=== PATIENT | male | born 1980 | race African-American/Black ===

== ENCOUNTER 2021-05-03 13:29 | Emergency (ER) | payer OTHER, SELFPAY ==
[2021-05-03 13:50] VITALS: BP 119/85; PULSE 100; RESP 20; TEMP 37.5; O2SAT 98
--- NOTE | 2021-05-03 14:38 | ED.FEVER ---
HPI - Fever General Chief Complaint: Fever Stated Complaint: fever Source: patient Mode of arrival: ambulatory Limitations: no limitations History of Present Illness HPI Narrative: Patient is a 41-year-old male who presents with generalized complaints for the past 3 to 4 days. He reports fever, chills and body aches. Patient also reports fatigue, however, he reports he is unable to sleep and feeling anxious. Patient reports that he is not taking his temperature at home. He reports a history of Covid in 2020 and recently vaccinated for Covid. He denies significant medical history. He denies cough, chest pain or shortness of breath. MD elicited complaint: fever Related Data Home Medications Medication Instructions Recorded Confirmed No Home Medications 05/03/21 05/03/21 Allergies Allergy/AdvReac Type Severity Reaction Status Date / Time No Known Allergies Allergy Verified 05/03/21 14:02 Review of Systems Review of Systems: CONSTITUTIONAL: Reports fever, chills, and body aches EYES: Denies visual changes, redness, or discharge. ENT: Denies rhinorrhea, congestion, sore throat, or otalgia. CARDIOVASCULAR: Denies chest pain, palpitations, or edema. RESPIRATORY: Denies cough or dyspnea. GASTROINTESTINAL: Denies abdominal pain, nausea, vomiting, or diarrhea. GENITOURINARY: Denies dysuria or hematuria. SKIN: Denies rash or itching. MUSCULOSKELETAL: Denies back pain, joint pain, or myalgia. NEUROLOGIC: Denies headache, numbness, dizziness, or weakness. PSYCHIATRIC: Denies anxiety or depression. [facility] Past Medical History Medical History (Updated 05/03/21 @ 14:43 by NEDRA Mcknight) HTN (hypertension) Comments At the time of signature, I have reviewed and agree with nursing past medical, surgical, social, and family history unless otherwise noted. Please see nursing chart for further information. There is no relevant family history pertinent to the presenting complaint. Exam Narrative: GENERAL: Well-appearing, well-nourished, and in no acute distress. HEAD: Normocephalic, atraumatic. EYES: EOMI. No redness or drainage. Conjunctiva are normal. ENT: Mucous membranes pink and moist. Nares clear. No rhinorrhea. Throat normal. Uvula midline. CHEST: No respiratory distress. HEART: Regular rate and rhythm. EXTREMITIES: Normal range of motion. No edema. SKIN: Warm, dry, no rash. NEURO: No focal deficits. Alert and oriented x3. Gait steady. PSYCH: Normal affect. No signs of depression or anxiety. Course Vital Signs Vital signs: Vital Signs Temperature 37.5 C 05/03/21 13:50 Pulse Rate 100 05/03/21 13:50 Respiratory Rate 20 05/03/21 13:50 Blood Pressure 119/85 05/03/21 13:50 Pulse Oximetry 98 05/03/21 13:50 Temperature 37.5 C 05/03/21 13:50 Pulse Rate 100 05/03/21 13:50 Respiratory Rate 20 05/03/21 13:50 Blood Pressure 119/85 05/03/21 13:50 Pulse Oximetry 98 05/03/21 13:50 Reviewed MDM - Fever MDM Narrative Medical decision making narrative: Rapid Covid is negative. Covid PCR sent to lab at this time. Discussed with patient taking [id number] medications for fever and body aches. Discussed staying well-hydrated. Patient to have Atarax for anxiety. Patient agrees with plan of care. Patient is stable for discharge to home with outpatient follow-up as needed. Differential Diagnosis Differential diagnosis: Likely community acquired pneumonia, viral infection, influenza and other (Covid, upper respiratory) Critical Care Time Critical Care Time Critical Care Time: No Discharge Plan Discharge Clinical Impression: Viral illness Patient Disposition: Home, Self-Care Condition: Stable Instructions: Antibiotic Form, COVID-19 (Coronavirus Disease 2019) (ED), COVID-19: Slow the Coronavirus Spread (ED) Additional Instructions: Your rapid Covid is negative in urgent care. A Covid PCR has been sent in which you will receive results in 24 to 72 hours. P
[2021-05-04 19:35] LABS: SARS-CoV-2 RNA PCR Negative
== END 2021-05-03 15:05 | disposition home or self-care (01) ==
PROVIDERS: Registered Nurse; Emergency Provider Nurse Practitioner
DX: B34.9 Viral infection, unspecified (principal); Z20.822 Contact with and (suspected) exposure to COVID-19; I10 Essential (primary) hypertension
CPT/HCPCS: 87426; 99213; C9803; G0463; U0003; U0005

== ENCOUNTER 2022-12-08 08:18 | Emergency (ER) | payer OTHER, SELFPAY ==
[2022-12-08 08:20] VITALS: BP 136/105; PULSE 86; RESP 20; TEMP 36.3; O2SAT 98
--- NOTE | 2022-12-08 08:25 | ED.URI ---
HPI - URI/Sore Throat General Chief Complaint: Upper Respiratory Infection Stated Complaint: runny nose Source: patient, RN notes reviewed and old records reviewed Mode of arrival: ambulatory Limitations: no limitations History of Present Illness HPI Narrative: 42-year-old male who presents to [facility] with complaints of runny nose for the past week with no fever or cough. Patient reports that he has taken cough medication, cough drops and has used [place] pot,and saline nasal spray without improvement in nasal drainage. Patient reports that his girlfriend tested positive for trichomonas 4 days ago and he needs treated, states he doesn't want tested he needs to be treated no multiple partners he reports. MD elicited complaint: rhinorrhea, nasal congestion and other (std) Onset (ago): week(s) (1) Treatments prior to arrival: other (cough med, cough drops, [place] pot.saline nasal spray) Related Data Allergies Allergy/AdvReac Type Severity Reaction Status Date / Time No Known Allergies Allergy Verified 12/08/22 08:30 Review of Systems Review of Systems: CONSTITUTIONAL: Denies fever, chills, or sweats. EYES: Denies visual changes, redness, or discharge. ENT: positive rhinorrhea, congestion,no sore throat, or otalgia. CARDIOVASCULAR: Denies chest pain, palpitations, or edema. RESPIRATORY: Denies cough or dyspnea. GASTROINTESTINAL: Denies abdominal pain, nausea, vomiting, or diarrhea. GENITOURINARY: Denies dysuria or hematuria reports girlfriend tested positive for trichomonas 4 days ago and he needs treated.. SKIN: Denies rash or itching. MUSCULOSKELETAL: Denies back pain, joint pain, or myalgia. NEUROLOGIC: Denies headache, numbness, or weakness. PSYCHIATRIC: Denies anxiety or depression. All systems reviewed & are unremarkable except as noted in HPI and below PMFSH Past Medical History Medical History (Updated 12/09/22 @ 07:12 by Supriya Aden NP) HTN (hypertension) Social History Social History (Updated 12/09/22 @ 07:09 by Supriya Aden NP) Smoking status: Current some day smoker Tobacco type: cigarettes and e-cigarettes/vaping Alcohol intake: current Substance use type: does not use Gender identity (if verbalized by the patient): Male Comments At time of signature, agree with nursing past medical, surgical, social and family history. There is no relevant family history pertinent to the presenting complaint Exam Narrative: GENERAL: Well-appearing, well-nourished, and in no acute distress. HEAD: Normocephalic, atraumatic. EYES: PERRLA and EOMI. ENT: Nares clear, clear rhinorrhea no epistaxis. Mucous membranes moist.TM's normal,throat pink with no swelling,post nasal drainage noted NECK: Supple. no lymphadenopathy CHEST: Clear to auscultation. No respiratory distress. SAO2 98% on room air HEART: Regular rate and rhythm. No murmur heard. Normal peripheral pulses. ABDOMEN: Soft, nontender, nondistended, normal active bowel sounds.denies any penile drainage or dysuria EXTREMITIES: Normal range of motion. No edema. SKIN: Warm, dry, no rash. NEURO: No focal deficits. Alert and oriented x3. Course Course Emergency Course: Patient is aware of diagnosis, understands and agrees to treatment plan.? Anticipatory guidance given.? Patient agrees to follow-up as directed and is aware of reasons to seek care at the emergency department. Portions of this record may have been created with voice recognition software Level of Care: Express Care Visit Vital Signs Vital signs: Vital Signs Temperature 36.3 C L 12/08/22 08:20 Pulse Rate 86 12/08/22 08:20 Respiratory Rate 20 12/08/22 08:20 Blood Pressure 136/105 H 12/08/22 08:20 Pulse Oximetry 98 12/08/22 08:20 Oxygen Delivery Room Air 12/08/22 08:20 Temperature 36.3 C L 12/08/22 08:20 Pulse Rate 86 12/08/22 08:20 Respiratory Rate 20 12/08/22 08:20 Blood Pressure 136/105 H 12/08/22 08:20 Pulse Oximetry 98 12/08/22
== END 2022-12-08 08:55 | disposition home or self-care (01) ==
PROVIDERS: Emergency Provider Registered Nurse
DX: J06.9 Acute upper respiratory infection, unspecified (principal); Z20.2 Contact with and (suspected) exposure to infections with a predominantly sexual mode of transmission; I10 Essential (primary) hypertension
CPT/HCPCS: 99213; G0463